=== PATIENT | male | born 1980 | race Hispanic/Latino ===

== ENCOUNTER 2025-03-29 11:37 | Day surgery (SDC) | payer OTHER ==
[2025-03-29] VITALS (14 sets, daily range): BP systolic 112–132; BP diastolic 67–81; PULSE 65–78; RESP 15–18; TEMP 97.3–98.4
[~2025-03-29] VITALS: Ht 167.6 cm; Wt 161.0 kg
[2025-03-29] MEDS ORDERED: LISI20TA24 PO (12:43)
[2025-03-29] MEDS ORDERED: METF-446 PO (12:43)
[2025-03-29] MEDS ORDERED: LIDOCAINE PF 100MG/5ML (2%) SYRINGE 5ML ONE (13:40)
== END 2025-03-29 15:40 | disposition home or self-care (01) ==
LOC: ENDO 11:37 → DAH 11:37 → ENDO 15:40
PROVIDERS: ATTEND Internal Medicine Gastroenterology
DX: Z12.11 Encounter for screening for malignant neoplasm of colon (principal); K62.1 Rectal polyp; K64.0 First degree hemorrhoids; K57.30 Diverticulosis of large intestine without perforation or abscess without bleeding; E66.01 Morbid (severe) obesity due to excess calories; E11.9 Type 2 diabetes mellitus without complications; R74.01 Elevation of levels of liver transaminase levels; I10 Essential (primary) hypertension; E78.5 Hyperlipidemia, unspecified; E66.813 Obesity, class 3; Z68.43 Body mass index [BMI] 50.0-59.9, adult; Z79.4 Long term (current) use of insulin; Z79.899 Other long term (current) drug therapy
CPT/HCPCS: 45380; 82948; 88305; J2003; J2704 ×2; J3490; A4620; A4215 ×2; A4223; A4222; A4221; A4663; J7030; A4606